=== PATIENT | female | born 1975 | race African-American/Black ===

== ENCOUNTER 2016-12-19 16:00 | Emergency (ER) | payer OTHER ==
[~2016-12-19] VITALS: Ht 170.2 cm; Wt 63.5 kg
[2016-12-19 16:17] VITALS: BP 139/99
[2016-12-19] MEDS ORDERED: KETOROLAC TROMETHAMINE INJ 60 MG/2 ML VIAL IM ONE ×2 (16:34→17:00)
== END 2016-12-19 17:19 | disposition home or self-care (01) ==
LOC: ER 16:02
DX: K05.219 Aggressive periodontitis, localized, unspecified severity (principal); F17.200 Nicotine dependence, unspecified, uncomplicated
CPT/HCPCS: 41800; 96372; 99284; A4606; A6402; J1885; Z7610

== ENCOUNTER 2017-05-07 21:12 | Emergency (ER) | payer OTHER ==
[~2017-05-07] VITALS: Ht 170.2 cm; Wt 61.2 kg
[2017-05-07 21:20] VITALS: BP 135/98
== END 2017-05-07 22:08 | disposition home or self-care (01) ==
LOC: ER 21:15
DX: L03.115 Cellulitis of right lower limb (principal); L03.116 Cellulitis of left lower limb; F17.200 Nicotine dependence, unspecified, uncomplicated
CPT/HCPCS: A4606; Z7610

== ENCOUNTER 2018-05-20 23:24 | Emergency (ER) | payer OTHER ==
[~2018-05-20] VITALS: Ht 152.4 cm; Wt 59.9 kg
[2018-05-20 23:43] VITALS: BP 132/77
== END 2018-05-20 23:55 | disposition home or self-care (01) ==
LOC: ER 23:25
DX: S70.362A Insect bite (nonvenomous), left thigh, initial encounter (principal); L03.116 Cellulitis of left lower limb; F17.200 Nicotine dependence, unspecified, uncomplicated; L08.89 Other specified local infections of the skin and subcutaneous tissue; W57.XXXA Bitten or stung by nonvenomous insect and other nonvenomous arthropods, initial encounter; Y93.89 Activity, other specified; Y92.89 Other specified places as the place of occurrence of the external cause; Y99.8 Other external cause status
CPT/HCPCS: 99283; A4606; Z7610